=== PATIENT | female | born 1955 | race Caucasian/White ===

== ENCOUNTER 2024-08-18 14:08 | Outpatient (NON) | payer MEDICARE, SELFPAY ==
--- OUTSIDE RECORDS SUMMARY | 2024-08-18 14:11 | XMS_ITS | Encounter Summary ---
Author Organization [facility] Address [address] [place] [address]. [place], [place] [address] [place] [address] Care Team Providers Care Tester Rocket Engine Name Role Phone LedaArmando pabonCaren Fam [facility] Primary Care Provider [phone] [phone] Reason for Visit * Reason Comments Follow Up Bleeding (Rectal) Cyst on left shoulde r Encounter Details Date Type Department Care Team (Late st Contact Info) Description 08/18/2024 1:00 PM SLIME PLANT OPERATOR Office Visit [facility] [address] [place] [phone] [place] [address] [address] Follow Up; Bleeding (Rectal) (Cyst on left shoulder) Social History Tobacco Use Types Packs/Day Years Used Date Smoking Tobacco: Never Smokeless Tobacco: Never Alcohol Use Standard Drinks/Week Comments Yes 0 (1 standard drink = 0.6 oz pure alcohol) occasional glass of wine a month maybe PHQ-2 Answer Date Recorded Patient Health Questionnaire-2 Score 0 01/13/2024 Comments No Sex and Gender Information Value Date Recorded Sex Assigned at Female 08/18/2024 12:52 PM SLIME PLANT OPERATOR Legal Sex Female 7:58 AM CDT Gender Identity Not on file Sexual Orientation Not on file documented as of this encounter Last Filed Vital Signs Vital Sign Reading Time Taken Comments Blood Pressure 122/86 08/18/2024 12:59 PM SLIME PLANT OPERATOR Pulse 81 08/18/2024 12:59 PM SLIME PLANT OPERATOR Temperature - - Respiratory Rate 16 08/18/2024 12:5 9 PM SLIME PLANT OPERATOR Oxygen Saturation 97% 08/18/2024 12: 59 PM SLIME PLANT OPERATOR Inhaled Oxygen Concentration - - Weight 85.2 kg (187 lb 12.8 oz) 025 12:59 PM SLIME PLANT OPERATOR Height 162.6 cm (5' 4 ) 08/18/2024 12:5 9 PM SLIME PLANT OPERATOR Body Mass Index 32.24 08/18/2024 12:59 PM SLIME PLANT OPERATOR documented in this encounter Plan of Treatment Upcoming Encounters Date Type Department Care Team (Late st Contact Info) Description 04/17/2025 9:20 AM CDT Office Visit [facility] [address] [place] [address] Caren Lam FNP [address] [place] [address] documented as of this encounter Visit Diagnoses Not on filedocumented in this encounter Additional Health Concerns Assessment Noted Time PHQ-9 Depression Total Score: 0 10/08/19 9:04 AM CDT documented as of this encounter Care Teams Tester Rocket Engine Relationship Specialty Start Date End Date Caren Lam FNP [address] [place] [address] PCP - General NURSE PRACTITIONER 06/22/18 documented as of this encounter
--- OUTSIDE RECORDS SUMMARY | 2024-08-18 14:11 | XMS_ITS | Encounter Summary ---
Author Organization [facility] Address [address] [place] [address]. [place], [place] [address] [place] [address] Care Team Providers Care Cartoon Animator Name Role Phone Caren Lam Primary Care Provider [phone] Encounter Details Date Type Department Care Team (Latest Contact Info) Description 08/18/2024 Travel Social History Tobacco Use Types Packs/Day Years Used Date Smoking Tobacco: Never Smokeless Tobacco: Never Alcohol Use Standard Drinks/Week Comments Yes 0 (1 standard drink = 0.6 oz pure alcohol) occasional glass of wine a month maybe PHQ-2 Answer Date Recorded Patient Health Questionnaire-2 Score 0 01/13/2024 Comments No Sex and Gender Information Value Date Recorded Sex Assigned at Female 08/18/2024 12:52 PM CLINICAL COORDINATOR Legal Sex Female 7:58 AM CDT Gender Identity Not on file Sexual Orientation Not on file documented as of this encounter Plan of Treatment Upcoming Encounters Date Type Department Care Team (Late st Contact Info) Description 04/17/2025 9:20 AM CDT Office Visit [facility] [address] [place] [address] Caren Lam FNP [address] [place] [address] documented as of this encounter Visit Diagnoses Not on filedocumented in this encounter Additional Health Concerns Assessment Noted Time PHQ-9 Depression Total Score: 0 10/08/19 22 9:04 AM CDT documented as of this encounter Care Teams Cartoon Animator Relationship Specialty Start Date End Date Caren Lam FNP [address] [place] [address] [place] [address] PCP - General NURSE PRACTITIONER 06/22/18 documented as of this encounter
--- OUTSIDE RECORDS SUMMARY | 2024-08-18 14:11 | XMS_ITS | Clinical Summary ---
Author Organization [facility] Address [address] [place] [address]. [place] [address] [place] [address] Care Team Providers Care Pyrometer Mechanic Name Role Phone LedacmCaren [facility] Primary Care Provider [phone] [phone] Allergies No known active allergies Medications Multiple Vitamin tablet Take 1 tablet by mouth daily. Active olmesartan (BENICAR) 20 MG tabletIndication s:Primary hypertension Take 1 tablet (20 mg total) by mouth daily. 90 tablet 3 4 Active atorvastatin (LIPITOR) 40 MG tabletIndication s:Elevated lipoprotein(a) Take 1 tablet (40 mg total) by mouth nightly at bedtime. at bedtime 90 tablet 3 4 Active probiotic (FLORAJEN3) Cap capsule Take 1 capsule by mouth 2 (two) times a day. Active sulfamethoxazole -trimethoprim (BACTRIM DS) 800-160 MG tabletIndication s:Abscess Take 1 tablet by mouth 2 (two) times daily for 10 days. 20 tablet 5 08/12/19 25 saccharomyces boulardii (FLORASTOR) 250 MG capsuleIndicatio ns:Abscess Take 1 capsule (250 mg total) by mouth 2 (two) times daily for 10 days. 20 capsule 5 08/04/19 25 Discontinue d(Therapy completed) Active Problems Problem Noted Date Diagnosed Date Osteoporosis screening declined 04/18/2023 Elevated lipoprotein(a) 07/08/2021 Primary hypertension 06/01/2021 Class 1 obesity due to exces s calories with serious comorbidity and body mass index (BMI) of 33.0 to 33.9 in adult 06/01/2021 Resolved Problems Problem Noted Date Diagnosed Date Resolved Date Anxiety 04/18/2023 04/17/2024 Encounters Date Type Department Care Team Description 08/18/2024 1:00 PM GRADUATE RN Office Visit [facility] Surgery Specialty [facility] [address] [place] [address] Pelon Myers MD Follow Up; Bleeding (Rectal) (Cyst on left shoulder) 08/18/2024 Travel 08/04/2024 4:58 PM GRADUATE RN - 08/04/2024 11:59 PM GRADUATE RN Hospital Encounter [facility] [address] [place] [address] Pelon Myers MD Discharge Disposition: Home or Self Care (Routine Discharge) 08/04/2024 3:40 PM GRADUATE RN Office Visit [facility] [address] [place] [address] Pelon Myers MD Procedure (I&D abscess) 08/04/2024 Travel 08/02/2024 2:40 PM GRADUATE RN Office Visit [facility] [address] [place] [address] Caren Savage, HOME IMPROVEMENT CONTRACTOR Cyst ( on left shoulder that is red and inflamed. X a couple of weeks/) 08/02/2024 Travel from Last 3 Months Immunizations Name Administration Dates Next Due Flucelvax 6 Months+ (Prefilled Syringe) 05/08/20 Fluzone High Dose (IIV, trivalent, 0.5mL) 2023 Fluzone High Dose - >Age 65 (Prefilled Syringe) 04/30/2023,04/10/2022,05/09/2021 Influenza (Generic) 04/24/2020 Influenza Adult (Generic) 05/08/2019 MODERNA COVID-19 (12+) MRNA, LNP-S, PF, 100 MCG/ 0.5 ML DOSE 09/07/2020,08/10/2020 PFIZER COVID-19 (ORIGINAL FO RMULATION, PURPLE CAP) mRNA, LNP-S, PF, 30 MCG/0.3 ML DOSE 06/22/2021 Tdap (Generic) 07/07/2021,05/16/2014 Family History Medical History Relation Comments Hypertension Father Cancer Mother Colon cancer Heart Disease Mother Breast Cancer Neg Hx Relation Status Comments Daughter Alive Father Mother Son 1 Alive Son 2 Alive Son 3 Alive Social History Tobacco Use Types Packs/Day Years Used Date Smoking Tobacco: Never Smokeless Tobacco: Never Tobacco Cessation:Counseling Given: No Alcohol Use Standard Drinks/Week Comments Yes 0 (1 standard drink = 0.6 oz pure alcohol) occasional glass of wine a month maybe PHQ-2 Answer Date Recorded Patient Health Questionnaire-2 Score 0 01/13/2024 Comments No Sex and Gender Information Value Date Recorded Sex Assigned at Female 08/18/2024 12:52 PM GRADUATE RN Legal Sex Female 7:58 AM CDT Gender Identity Not on file Sexual Orientation Not on file Last Filed Vital Signs Vital Sign Reading Time Taken Comments Blood Pressure 122/86 08/18/2024 12:59 PM GRADUATE RN Pulse 81 08/18/2024 12:59 PM GRADUATE RN Temperature 36.9 ??C (98.4 ??F) 08/02/2024 2:30 PM CS T Respiratory Rate 16 08/18/2024 12:5 9 PM GRADUATE RN Oxygen Saturation 97% 08/18/2024 12: 59 PM GRADUATE RN Inhaled Oxygen Concentration - - Weight 85.2 kg (187 lb 12.8 oz) 025 12:59 PM GRADUATE RN Height 162.6 cm (5' 4 ) 08/18/2024 12:5 9 PM GRADUATE RN Body Mass Index 32.24 08/18/2024 12:59 PM GRADUATE RN Plan of Treatment Upcoming Encounters Date Type Department Care Team (Late st Contact Info) Description 04/17/2025 9:20 AM CDT Office Visit [facility] [address] [place] [address] Caren Savage [place] [address] [place] [address] Health Maintenance Due Date Last Done Comments Zoster Vaccines (1 of 2) 02/13/2006 Annual Medicare Wellness Visit 02/13/2021 Dexa Scan (General) 02/13/2021 Pneumococcal Vaccine: 65+ Years (1 of 1 - PCV) 02/13/2021 COVID-19 Vaccine (4 - season) 2024 06/22/2021, 09/07/2020, 08/10/2020 PHQ-2 (Physician [place]) 07/19/2024 01/13/2024 Mammogram Screening 01/31/2026 02/01/2024, 05/05/2022, 10/25/2020, Additional history exists Colorectal Cancer Screening FIT-DNA (3 Years) 05/11/2026 05/11/2023, 05/11/2023 RSV Immunization or 60+ Years (1 - 1-dose 75+ series) 02/13/2031 DTaP, Tdap and Td Vaccines (3 - Td or Tdap) 07/07/2031 07/07/2021, 05/16/2014 Hepatitis C Completed 06/27/2021 Influenza Adult Completed 05/02/2024, 04/18, 04/10/2022, Additional history exists Meningococcal B Vaccine Aged Out No l onger eligible based on patient's age to complete this topic Meningococcal Vaccine Aged Out No anita gina eligible based on patient's age to complete this topic RSV Immunizations Under 20 Months Aged Out No longer eligible based on patient's age to complete this topic Procedures Procedure Name Priority Date/Time Associated Diagnosis Comments HC BODY FLUID CULTURE Routine 08/04/2024 3:37 PM GRADUATE RN Abscess MG DIAG W CRUZITO BILAT DIGI Routine 02/01/2024 9:20 AM CDT Mass of lower outer quadrant of left breast COLOGUARD ([facility]) Routine 05/11/2023 10:15 AM CDT Screening for colon cancer HEPATITIS C RNA W/ REFLX GENOTYPE Routine 06/27/2021 9:14 AM GRADUATE RN from Last 3 Months or Most Recently Relevant to Health Maintenance Results * CULTURE, WOUND, W/GRAM STAIN (08/04/2024 3:37 PM GRADUATE RN) SPEC DESCRIPTION CHEST,LEFT 08/04/2024 4:58 PM GRADUATE RN [facility] SPECIAL REQUESTS NO SPECIAL REQUEST 08/04/2024 4:58 PM GRADUATE RN [facility] GRAM STAIN RESULT MANY WHITE BLOOD CELLS SEEN 08/05/2024 11:40 AM GRADUATE RN [facility] GRAM STAIN RESULT NO ORGANISMS SEEN 08/05/2024 11:40 AM GRADUATE RN [facility] CULTURE RESULT NO GROWTH 3 DAYS 08/07/2024 7:39 AM GRADUATE RN [facility] THORACIC STRUCTURE / Unknown 08/04/2024 3:37 PM GRADUATE RN 08/04/2024 4:59 PM GRADUATE RN us Pelon Myers MD MICROBIOLOGY - GENERAL ORDERABLE S Final Result [facility] [address] [place] [address], [place] [phone] [facility] [address] [place] [address], [place] * MG DIAG W CRUZITO BILAT DIGI (02/01/2024 9:20 AM CDT) Anatomical Region Laterality Modality Breast Bilateral Computed Tomogra phy, Other, Computed Tomography 02/01/2024 10:3 5 AM CDT Impressions 02/01/2024 10:42 AM CDT ===== IMPRESSION: ===== 1. ??Probable inflammatory process within the left breast as detailed above. Follow-up left breast ultrasound in 3 months of be of benefit to document resolution of underlying inflammatory process. Assessment: ACR BI-RADS 3 - PROBABLY BENIGN FINDING(S) - SHORT INTERVAL FOLLOW- UP SUGGESTED Recommendation: 1: Short interval follow-up in 3 months Left Comments: Follow-up ultrasound. If indicated at that time repeat mammogram may be needed Ordered By: CAREN SAVAGE Interpreted By: Negro Milan, 02/01/2024 10:35 AM Narrative 02/01/2024 10:42 AM CDT Examination: Diagnostic bilateral mammogram and left breast ultrasound [id number] Exam Date/Time: 02/01/2024 8:52 AM Reason For Exam: ??left breast mass ? Left lower outer lump. Painful red lump for one month. Has undergone 2 rounds of antibiotics. Patient states it has gotten smaller and less painful with antibiotics. Overlying skin discoloration is present. Comparison: 10/25/2020.. 05/05/2022 Technique: Bilateral diagnostic mammography and left breast ultrasound including sonographic grayscale images projections targeted in the region of interest. ??Doppler used to assess vasculature. 3D tomographic images were obtained. Tissue density: There are scattered areas of fibroglandular density. Findings: ?? Mammogram: Marker placed at approximately the 4 to 5:00 position of the left breast with underlying mild fatty infiltration which may be due to edema. Subtle adjacent nodule to the skin marker, best seen on MLO 3-D image #7. May be due to small fluid collection seen on same-day ultrasound. No malignant microcalcifications. No skin thickening or nipple retraction. Stable benign-appearing nodule within the anterior 3:00 position of the left breast Leftbreast ultrasound: Imaging at the approximate 5:00 position of the left breast 10 cm from the nipple. There is an underlying ill-defined mixed echogenic, mainly cystic lesion within the underlying breast parenchyma. No abnormal color flow. May be due to residual fluid from prior abscess. Follow-up would be of benefit. No shadowing foci. This measures 1.4 x 0.5 x 1.4 cm. There is a tract from this lesion to the skin surface. Best seen on image 12 us Caren Savage HOME IMPROVEMENT CONTRACTOR MAMMO Final Res ult * COLOGUARD ([facility]) (05/11/2023 10:15 AM CDT) COLOGUARD RESULT Negative Negative [facility] (CLIA #:[id number]) Comment: NEGATIVE TEST RESULT. A negative Cologuard result indicates a low likelihood that a colorectal cancer (CRC) or advanced adenoma (adenomatous polyps with more advanced pre-malignant features) ??is present. The chance that a person with a negative Cologuard test has a colorectal cancer is less than 1 in 1500 (negative predictive value >99.9%) or has an ??advanced adenoma is less than ??5.3% (negative predictive value 94.7%). These data are based on a prospective cross-sectional study of 10,000 individuals at average risk for colorectal cancer who were screened with both Cologuard and colonoscopy. (Nasim Najera al, N Engl J Med 2014;370(14):1286- 1297) The normal value (reference range) for this assay is negative. COLOGUARD RE-SCREENING RECOMMENDATION: Periodic colorectal cancer screening is an important part of preventive healthcare for asymptomatic individuals at average risk for colorectal cancer. ??Following a negative Cologuard result, the [place] Cancer Society and U.S. Multi-Society Task Force screening guidelines recommend a Cologuard re-screening interval of 3 years. References: [place] [employer] Guideline for Colorectal Cancer Screening: https://www.cancer.org/cancer/gyvkh-fpwaqd-syyqbf/cltmrxmwx-rfmgepxbu-zoyehbm/ac s-rec ommendations.html.; Ricardo DK, Sean MENDOZA, Carlita TracyK, Colorectal Cancer Screening: Recommendations for Physicians and Patients from the U.S. Multi-Society Task Force on Colorectal Cancer Screening , Am J Gastroenterology 2017; 112:8876-7581. TEST DESCRIPTION: Composite algorithmic analysis of stool DNA-biomarkers with hemoglobin immunoassay. ?? Quantitative values of individual biomarkers are not reportable and are not associated with individual biomarker result reference ranges. Cologuard is intended for colorectal cancer screening of adults of either sex, 45 years or older, who are at average-risk for colorectal cancer (CRC). Cologuard has been approved for use by the U.S. FDA. The performance of Cologuard was established in a cross sectional study of average-risk adults aged 50-84. Cologuard performance in patients ages 45 to 49 years was estimated by sub-group analysis of near-age groups. Colonoscopies performed for a positive result may find as the most clinically significant lesion: colorectal cancer [4.0%], advanced adenoma (including sessile serrated polyps greater than or equal to 1cm diameter) [20%] or non- advanced adenoma [31%]; or no colorectal neoplasia [45%]. These estimates are derived from a prospective cross-sectional screening study of 10,000 individuals at average risk for colorectal cancer who were screened with both Cologuard and colonoscopy. (Nasim Zarate et al, N Engl J Med 2014;370(14):3682-3404.) Cologuard may produce a false negative or false positive result (no colorectal cancer or precancerous polyp present at colonoscopy follow up). A negative Cologuard test result does not guarantee the absence of CRC or advanced adenoma (pre-cancer). The current Cologuard screening interval is every 3 years. ([place] [employer] and U.S. Multi-Society Task Force). Cologuard performance data in a 10,000 patient pivotal study using colonoscopy as the reference method can be accessed at the following location: www.[employer]results. Additional description of the Cologuard test process, warnings and precautions can be found at www.[employer]ifi. STOOL STOOL SPECIMEN / Unknown 05/11/2023 10:15 AM CDT 05/12/2023 2:27 PM CDT Caren Savage HOME IMPROVEMENT CONTRACTOR BODY FLUIDS AND STOOLS OR DERABLES Final Result [facility] [address] [place] [address], [facility] (CLIA #:[id number]) [address] [place] [id number] * HEPATITIS C RNA W/ REFLX GENOTYPE (06/27/2021 9:14 AM GRADUATE RN) HEPATITIS C AB NON-REACTIVE NON-REACT MARKY [facility] SIGNAL TO CUTOFF 0.01 <1.00 [facility] Comment: HCV antibody was non-reactive. There is no laboratory evidence of HCV infection. In most cases, no further action is required. However, if recent HCV exposure is suspected, a test for HCV RNA (test code 89891) is suggested. For additional information please refer to http://education.[employer]KT.[employer]ifi/faq/CNK63v9 (This link is being provided for informational/ educational purposes only.) MERCEDES TAVARES DO,MPH THIS TEST WAS PERFORMED AT [facility] [address] [place] [address] HEPATITIS C AB NO [facility] COMMENT Not required [facility] 06/27/2021 9:14 AM GRADUATE RN 06/27/2021 9:14 AM GRADUATE RN Caren [facility] Final Res ult [facility] [address] [place] [address] from Last 3 Months or Most Recently Relevant to Health Maintenance Insurance MEDICARE [employer] Care Teams Pyrometer Mechanic Relationship Specialty Start Date End Date Caren Savage FNP [address] [place] [address] [place] [address] PCP - General NURSE PRACTITIONER 06/22/18
== END 2024-08-18 14:09 | disposition home or self-care (01) ==
LOC: ANHLAB 14:09
PROVIDERS: Visit Provider Surgery
DX: N61.1 Abscess of the breast and nipple (principal)
CPT/HCPCS: 88305